=== PATIENT | male | born 1980 ===

== ENCOUNTER → 2018-04-10 | Outpatient (CLI) | payer OTHER ==
[~2018-04-10] MED LIST: LISI-362 PO; OMEP-125 PO
== END ==
LOC: AMB 18:05
PROVIDERS: ATTEND Nurse Practitioner
DX: I46.9 Cardiac arrest, cause unspecified (principal); R06.81 Apnea, not elsewhere classified; R23.0 Cyanosis; E16.2 Hypoglycemia, unspecified
CPT/HCPCS: A0429